=== PATIENT | male | born 1995 | race Two or more races ===

== ENCOUNTER 2020-02-29 14:44 | Emergency (ER) | payer OTHER, SELFPAY ==
[~2020-02-29] VITALS: Ht 172.7 cm; Wt 77.1 kg
[2020-02-29 15:12] VITALS: BP 107/48
== END 2020-02-29 17:57 | disposition home or self-care (01) ==
LOC: ER 14:44
DX: J06.9 Acute upper respiratory infection, unspecified (principal); Z20.828 Contact with and (suspected) exposure to other viral communicable diseases
CPT/HCPCS: 36415; 71045; 87426